=== PATIENT | female | born 1955 | race Caucasian/White ===

== ENCOUNTER 2017-11-05 07:30 | Emergency (ER) | payer BC ==
[2017-11-05 07:53] VITALS: BMI 28.9
[2017-11-05 08:28] LABS: URINE APPEARANCE CLEAR; URINE BILIRUBIN NEGATIVE (<2.0 mg/dL); URINE COLOR LTYELLOW; URINE GLUCOSE (UA) NEGATIVE (NEGATIVE); URINE KETONE NEGATIVE (NEGATIVE); URINE NITRITE NEGATIVE (NEGATIVE); URINE PROTEIN NEGATIVE (NEGATIVE); URINE UROBILINOGEN NEGATIVE mg/dL (0.2-1.0)
[2017-11-05 08:33] LABS: URINE LEUK ESTERASE 2+ (NEGATIVE)
[2017-11-05 08:56] LABS: URINE BACTERIA RARE /hpf (NONE SEEN)
--- NOTE | 2017-11-05 09:04 | PDOC ---
History of Present Illness - History of Present Illness Initial Comments: 11/05/17 10:21 The patient is a 62 year old female with a significant PMH of UTIs, MVP, HTN, and GERD who presents to the emergency department with hematuria, dysuria, flank pain, and lower abdominal pain beginning approximately 3 days ago. The patient describes her hematuria as bright red blood which transitioned to a darker red this morning with associated dysuria. No clots. The patient also notes urinary urgency, intermittent nausea over the past few days. She reports taking a dose of Clindamycin prior to arrival which she had leftover from a tooth infection The patient states her dysuria and flank pain is similar to her prior UTIs but states she has never had hematuria in the past. She states she felt like she was developing a tract infection, prompting her visit.The patient denies following with Urologist. The patient denies chest pain, shortness of breath, headache and dizziness. Denies fever, chills, nausea, vomit, diarrhea and constipation. Allergies: NKA Past surgical history: x2. Social history: Former smoker. No reported alcohol or drug use. PCP: Dr. Stephens <Stephen Franco - Last Filed: 11/05/17 10:03> - History of Present Illness Initial Comments: 11/05/17 11:38 Allergies: Allergy to Penicillin* <Lizandro Day - Last Filed: 11/05/17 11:39> - General Chief Complaint: Hematuria Stated Complaint: BLEEDING Time Seen by Provider: 11/05/17 07:55 Past History - Past Medical History Cardiac Disorders: Yes (MVP) COPD: No GI Disorders: Yes (Gerd) HTN: Yes - Suicide/Smoking/Psychosocial Hx Smoking History: Former smoker Have you smoked in the past 12 months: No Information on smoking cessation initiated: No Hx Alcohol Use: No Drug/Substance Use Hx: No Substance Use Type: None <Stephen Franco - Last Filed: 11/05/17 10:03> <Lizandro Day - Last Filed: 11/05/17 11:39> - Past Medical History Allergies/Adverse Reactions: Allergies Allergy/AdvReac Type Severity Reaction Status Date / Time Penicillins Allergy Verified 11/05/17 07:50 Home Medications: Ambulatory Orders Atenolol [Tenormin -] 50 mg PO DAILY 06/17/13 Review of Systems - Review of Systems Comments:: 11/05/17 10:21 GENERAL/CONSTITUTIONAL: No fever or chills. No weakness. HEAD, EYES, EARS, NOSE AND THROAT: No change in vision. No ear pain or discharge. No sore throat. GASTROINTESTINAL: (+) Nausea. (+) Lower abdominal pain. No vomiting, diarrhea or constipation. GENITOURINARY: (+) Flank pain. (+) Dysuria. (+) Urinary urgency. (+) Hematuria. CARDIOVASCULAR: No chest pain or shortness of breath. RESPIRATORY: No cough, wheezing, or hemoptysis. MUSCULOSKELETAL: No joint or muscle swelling or pain. No neck or back pain. SKIN: No rash NEUROLOGIC: No headache, vertigo, loss of consciousness, or change in strength/ sensation. ENDOCRINE: No increased thirst. No abnormal weight change. HEMATOLOGIC/LYMPHATIC: No anemia, easy bleeding, or history of blood clots. ALLERGIC/IMMUNOLOGIC: No hives or skin allergy. <Nassef,Yomna - Last Filed: 11/05/17 10:03> *Physical Exam - Vital Signs Last Vital Signs Temp Pulse Resp BP Pulse Ox 98.5 F 79 20 139/80 100 11/05/17 07:51 11/05/17 07:51 11/05/17 07:51 11/05/17 07:51 11/05/17 07:51 - Physical Exam Comments: 11/05/17 10:21 GENERAL: Awake, alert, and fully oriented, in no acute distress HEAD: No signs of trauma EYES: PERRLA, EOMI, sclera anicteric, conjunctiva clear ENT: Auricles normal inspection, hearing grossly normal, nares patent, oropharynx clear without exudates. Moist mucosa NECK: Normal ROM, supple, no lymphadenopathy, JVD, or masses LUNGS: Breath sounds equal, clear to auscultation bilaterally. No wheezes, and no crackles HEART: Regular rate and rhythm, normal S1 and S2, no murmurs, rubs or gallops ABDOMEN: Soft, nontender, normoactive bowel sounds. No guarding, no rebound. No masses EXTREMITIES: Normal range of motion, no edema. No clubbing or cyanosis. No cords , erythema, or tenderness NEUROLOGICAL: Normal speech, cranial nerves intact, negative pronator drift, 5/ 5 strength in all 4 extremities, normal sensation to light touch in all 4 extremities, normal cerebellar exam, normal gait, normal reflexes and tone SKIN: Warm, Dry, normal turgor, no rashes or lesions noted. <Stephen Franco - Last Filed: 11/05/17 10:03> - Vital Signs Last Vital Signs Temp Pulse Resp BP Pulse Ox 98.5 F 79 20 139/80 100 11/05/17 07:51 11/05/17 07:51 11/05/17 07:51 11/05/17 07:51 11/05/17 07:51 <Lizandro Day - Last Filed: 11/05/17 11:39> ED Treatment Course - LABORATORY CBC & Chemistry Diagram: 11/05/17 09:00 11/05/17 08:54 - ADDITIONAL ORDERS Additional order review: Laboratory Results 11/05/17 08:03 Urine Color Ltyellow Urine Appearance Clear Urine pH 6.0 Ur Specific Fowler 1.001 Urine Protein Negative Urine Glucose (UA) Negative Urine Ketones Negative Urine Blood 3+ H Urine Nitrite Negative Urine Bilirubin Negative Urine Urobilinogen Negative Ur Leukocyte Esterase 2+ H Urine WBC (Auto) 15 Urine RBC (Auto) >100 Urine Bacteria Rare <Stephen Franco - Last Filed: 11/05/17 10:03> - LABORATORY CBC & Chemistry Diagram: 11/05/17 09:00 11/05/17 08:54 - ADDITIONAL ORDERS Additional order review: Laboratory Results 11/05/17 11/05/17 08:54 08:03 Sodium 137 Potassium 4.3 Chloride 104 Carbon Dioxide 25 Anion Gap 8 BUN 18 Creatinine 0.8 Creat Clearance w eGFR > 60 Random Glucose 82 Calcium 8.4 L Urine Color Ltyellow Urine Appearance Clear Urine pH 6.0 Ur Specific Fowler 1.001 Urine Protein Negative Urine Glucose (UA) Negative Urine Ketones Negative Urine Blood 3+ H Urine Nitrite Negative Urine Bilirubin Negative Urine Urobilinogen Negative Ur Leukocyte Esterase 2+ H Urine WBC (Auto) 15 Urine RBC (Auto) >100 Urine Bacteria Rare 11/05/17 09:00 RBC 4.67 MCV 88.0 MCHC 33.7 RDW 14.3 MPV 7.5 Neutrophils % 79.3 D Lymphocytes % 10.5 D Monocytes % 7.5 Eosinophils % 2.0 Basophils % 0.7 <Lizandro Day - Last Filed: 11/05/17 11:39> Medical Decision Making - Medical Decision Making 11/05/17 09:45 62yo F hx MVP presents to the ED for L flank pain, hematuria, dysuria. Vitals wnl, +mild suprapubic ttp. DDX includes but not limited to renal colic vs UTI. Plan: -ua -labs -CTAP w/o contrast -pt declines pain meds -reassess <Stephen Franco - Last Filed: 11/05/17 10:03> *DC/Admit/Observation/Transfer <Stephen Franco - Last Filed: 11/05/17 10:03> - Attestations Scribe Attestion: 11/05/17 10:24 Documentation prepared by Lizandro Day, acting as pediatric medical assistant for Stephen Franco MD. <Lizandro Day - Last Filed: 11/05/17 11:39> - Referrals Referrals: Jeevan Stephens MD [Primary Care Provider] - - Patient Instructions - Post Discharge Activity
[2017-11-05 09:11] LABS: BASO % 0.7 % (0-2.0); HEMATOCRIT 41.1 % (32.4-45.2); HEMOGLOBIN 13.9 GM/dL (10.7-15.3); LYMPH % 10.5 % (8-40); MCH 29.6 pg (25.7-33.7); MCHC 33.7 g/dl (32.0-36.0); MEAN PLT VOLUME 7.5 fl (7.5-11.1); MONO % 7.5 % (3.8-10.2); NEUT % 79.3 % (42.8-82.8); PLATELET COUNT 181 K/MM3 (134-434); RBC 4.67 M/mm3 (3.60-5.2); RDW 14.3 % (11.6-15.6); WHITE BLOOD COUNT 10.3 K/mm3 (4.0-10.0)
[2017-11-05 09:41] LABS: ANION GAP 8 (8-16); BLOOD UREA NITROGEN 18 mg/dL (7-18); CALCIUM 8.4 mg/dL (8.5-10.1); CHLORIDE 104 mmol/L (98-107); CO2 25 mmol/L (21-32); CREATININE 0.8 mg/dL (0.55-1.02); GLUCOSE,RANDOM 82 mg/dL (74-106); POTASSIUM 4.3 mmol/L (3.5-5.1); SODIUM 137 mmol/L (136-145)
[2017-11-05] MEDS ORDERED: SODIUM CHLORIDE 0.9% 500 ML INFUS.BAG IV ONE (16:29)
[2017-11-05 16:44] VITALS: TEMP 98.4
[2017-11-05] MEDS ORDERED: KETOROLAC TROMETHAMINE 15 MG/ML VIAL IVPUSH ONE (17:20)
[2017-11-05] MEDS ORDERED: KETOROLAC TROMETHAMINE 30 MG/1 ML VIAL ONE (18:29)
[2017-11-05 18:40] VITALS: BP 121/65; PULSE 72
== END 2017-11-05 18:40 | disposition home or self-care (01) ==
LOC: JER 07:30
PROC: 3E0337Z Introduction of Electrolytic and Water Balance Substance into Peripheral Vein, Percutaneous Approach (ICD-10-PCS; principal; 2017-11-05)
DX: R31.9 Hematuria, unspecified (principal); Z87.891 Personal history of nicotine dependence
CPT/HCPCS: 36415; 74176-TC; 76775-TC; 80048; 81003; 81015; 85025; 87086; 99283-25